=== PATIENT | female | born 1980 | race Two or more races ===

== ENCOUNTER 2019-09-16 16:55 | Emergency (ER) | payer OTHER ==
[~2019-09-16] VITALS: Ht 162.6 cm; Wt 789.3 kg
[~2019-09-16 16:55] MED LIST: PANADOL EXTRA500 MG
== END 2019-09-16 18:16 | disposition home or self-care (01) ==
LOC: ER 16:55
DX: S90.32XA Contusion of left foot, initial encounter (principal); W22.8XXA Striking against or struck by other objects, initial encounter; Y93.89 Activity, other specified; Y92.832 Beach as the place of occurrence of the external cause; Y99.8 Other external cause status

== ENCOUNTER 2020-07-05 14:13 | Outpatient (CLI) | payer OTHER | END 2020-07-05 14:37 | disposition home or self-care (01) | LOC: MAMO-SONO 14:13 | PROVIDERS: ATTEND Obstetrics & Gynecology Maternal & Fetal Medicine | DX: Z12.31 Encounter for screening mammogram for malignant neoplasm of breast (principal); N63.0 Unspecified lump in unspecified breast; N64.4 Mastodynia; N60.11 Diffuse cystic mastopathy of right breast ==